=== PATIENT | female | born 1960 ===

== ENCOUNTER 2018-09-05 07:58 | Outpatient (CLI) | payer OTHER ==
[2018-09-05] MEDS ORDERED: CARDIZEM LA300 MG PO (14:51)
[2018-09-05] MEDS ORDERED: NEURONTIN300 MG PO (14:52)
[2018-09-05] MEDS ORDERED: JANUMET 50-1,01 EACH PO (14:52)
[2018-09-05] MEDS ORDERED: HUMALOG MI100 UNIT/2 (14:53)
[2018-09-05] MEDS ORDERED: LIPITOR20 MG PO (14:54)
[2018-09-05] MEDS ORDERED: OMEPRAZOLE40 MG PO (14:54)
[2018-09-05] MEDS ORDERED: SINGULAIR 10MG10 MG PO (14:54)
[2018-09-05] MEDS ORDERED: SYNTHROID150 MCG PO (14:54)
[2018-09-05] MEDS ORDERED: PLAQUENIL PO (14:55)
== END 2018-09-05 08:06 | disposition home or self-care (01) ==
LOC: EKG 07:58 → LAB 07:58 → RAD 07:58
DX: K43.9 Ventral hernia without obstruction or gangrene (principal); K42.9 Umbilical hernia without obstruction or gangrene; Z01.810 Encounter for preprocedural cardiovascular examination

== ENCOUNTER 2018-09-09 05:30 | Day surgery (SDC) | payer OTHER ==
[~2018-09-09 05:30] MED LIST: CARDIZEM LA300 MG PO; HUMALOG MI100 UNIT/2; JANUMET 50-1,01 EACH PO; LIPITOR20 MG PO; NEURONTIN300 MG PO; OMEPRAZOLE40 MG PO; PLAQUENIL PO; SINGULAIR 10MG10 MG PO; SYNTHROID150 MCG PO
[2018-09-09] MEDS ORDERED: ULTRACET PO (11:28)
[2018-09-09] MEDS ORDERED: SURFAK240 M1 PO (11:31)
== END 2018-09-09 13:57 | disposition home or self-care (01) ==
LOC: CIR.AMB 05:30
DX: K42.9 Umbilical hernia without obstruction or gangrene (principal); K43.9 Ventral hernia without obstruction or gangrene; K66.0 Peritoneal adhesions (postprocedural) (postinfection)